=== PATIENT | female | born 1990 | race African-American/Black ===

== ENCOUNTER → 2017-11-03 | Outpatient (CLI) | payer OTHER ==
[~2017-11-03] MED LIST: AMOXICILLIN 50500 MG PO; ANTIVERT 25MG25 MG PO; DOXYCYCLINE 10100 MG PO; FLAGYL500 MG PO; FLONASE NASAL S16 GM NS; HYDROCHLOROTH12.5 M1 PO; HYDROCORT CREAM1% TP; IMPLANON68 MG ID; MOTRIN 800800 MG/TAB PO; NORCO 325 MG-51 TAB PO; PEN-VEE K500 MG PO; PHENERGAN 25 TA25 MG PO; PRENATAL1 TA7 PO; SUDAFED30 MG PO; TRIAMTERENE/HCT1 CAP PO
== END ==
LOC: COL.RAD 10-31 09:45
DX: M79.671 Pain in right foot (principal)

== ENCOUNTER → 2020-06-03 | Outpatient (CLI) | payer SELFPAY | LOC: ZLAB.KSTAT 15:46 | DX: Z20.828 Contact with and (suspected) exposure to other viral communicable diseases (principal) ==

== ENCOUNTER 2022-11-15 21:03 | Emergency (ER) | payer BC ==
[~2022-11-15] VITALS: Ht 172.7 cm; Wt 140.9 kg
[2022-11-15 21:35] LABS: BASO % 0.3 % (0.0-2.0); EOS # 0.2 K/mm3 (0.0-0.7); EOS % 1.6 % (0.0-4.0); GRAN # 5.2 K/mm3 (1.4-6.5); GRAN % 55.6 % (42.2-75.2); HEMATOCRIT 38.5 % (37.0-47.0); HEMOGLOBIN 12.5 g/dl (12.5-16.0); LYMPH # 3.5 K/mm3 (1.2-3.4); LYMPH % 37.2 % (20.0-51.0); MEAN CELL VOLUME 87 fl (80.0-100.0); MEAN CORPUSCULAR HEMOGLOBIN 28 pg (27-31); MEAN CORPUSCULAR HGB CONC 33 g/dl (33.0-37.0); MEAN PLATELET VOLUME 9.5 fl (7.4-10.4); MONO # 0.5 K/mm3 (0.1-0.6); PLATELET COUNT 345 K/mm3 (130-400); RED BLOOD COUNT 4.44 M/mm3 (4.10-5.30); REDCELL DISTRIBUTION WIDTH-CV 13.6 % (11.5-14.5)
[2022-11-15 22:24] LABS: COLLECTION METHOD CLEAN CATCH
[2022-11-15 22:33] LABS: MUCOUS Present (NOT PRESENT); URINE BACTERIA None Seen /hpf (NONE SEEN)
[2022-11-15 22:36] LABS: PH 5.5 (5.0-8.5); URINE APPEARANCE Clear (CLEAR/HAZY); URINE BLOOD 2+ (NEGATIVE); URINE COLOR Yellow (YELLOW); URINE GLUCOSE Negative (NEGATIVE); URINE KETONE TRACE (NEGATIVE); URINE NITRATE Negative (NEGATIVE); URINE PROTEIN(semi-quant) Negative (NEGATIVE); URINE UROBILINOGEN 0.2 E.U/dL (0.2-1.0)
[2022-11-15] MEDS ORDERED: SPRINTEC 35 MCG1 TAB PO (22:41)
[2022-11-15 23:02] VITALS: BP 137/78; PULSE 78; TEMP 98
== END 2022-11-15 23:02 | disposition home or self-care (01) ==
LOC: COL.ER 21:03
PROVIDERS: Emergency Medicine
DX: N92.0 Excessive and frequent menstruation with regular cycle (principal)
CPT/HCPCS: J7030

== ENCOUNTER 2023-10-16 11:09 | Emergency (ER) | payer BC ==
[~2023-10-16] VITALS: Ht 170.2 cm; Wt 136.4 kg
[~2023-10-16 11:09] MED LIST changes: +SPRINTEC 35 MCG1 TAB PO
[2023-10-16 11:17] VITALS: TEMP 98.8
[2023-10-16] MEDS ORDERED: NS 1,000 ML IV ONE (12:00)
[2023-10-16 12:26] LABS: COLLECTION METHOD CLEAN CATCH
[2023-10-16 12:30] LABS: BASO # 0.1 K/mm3 (0.0-0.2); BASO % 0.4 % (0.0-2.0); EOS # 0.2 K/mm3 (0.0-0.7); EOS % 1.8 % (0.0-4.0); GRAN # 9.4 K/mm3 (1.4-6.5); GRAN % 75.7 % (42.2-75.2); HEMATOCRIT 39.3 % (37.0-47.0); HEMOGLOBIN 12.6 g/dl (12.5-16.0); LYMPH # 1.7 K/mm3 (1.2-3.4); LYMPH % 13.9 % (20.0-51.0); MEAN CELL VOLUME 87 fl (80.0-100.0); MEAN CORPUSCULAR HEMOGLOBIN 28 pg (27-31); MEAN CORPUSCULAR HGB CONC 32 g/dl (33.0-37.0); MEAN PLATELET VOLUME 9.4 fl (7.4-10.4); MONO % 7.8 % (1.7-9.3); PLATELET COUNT 322 K/mm3 (130-400); RED BLOOD COUNT 4.51 M/mm3 (4.10-5.30); REDCELL DISTRIBUTION WIDTH-CV 12.8 % (11.5-14.5)
[2023-10-16 12:37] LABS: URINE APPEARANCE CLEAR (CLEAR/HAZY); URINE BLOOD NEGATIVE (NEGATIVE); URINE COLOR YELLOW (YELLOW); URINE GLUCOSE NEGATIVE (NEGATIVE); URINE KETONE NEGATIVE (NEGATIVE); URINE NITRATE NEGATIVE (NEGATIVE); URINE PROTEIN(semi-quant) NEGATIVE (NEGATIVE)
[2023-10-16 12:48] LABS: ALBUMIN 3.3 gm/dL (3.5-5.0); BILIRUBIN,TOTAL 0.5 mg/dL (0.2-1.2); C-REACTIVE PROTEIN 8.5 mg/dL (0.00-0.50); CALCIUM 9.3 mg/dL (8.4-10.2); CREATININE, serum 0.71 mg/dL (0.57-1.11); TOTAL PROTEIN 7.7 gm/dL (6.2-8.1)
[2023-10-16] MEDS ORDERED: Penicillin G Benz 1,200,000 UNITS/2 ML SYRINGE IM ONE (13:15)
[2023-10-16] MEDS ORDERED: dexAMETHasone 10 MG/ML VIAL IV ONE (13:15)
[2023-10-16 13:53] VITALS: BP 127/76; PULSE 98
== END 2023-10-16 13:39 | disposition home or self-care (01) ==
LOC: COL.ER 11:09
PROVIDERS: Nurse Practitioner
DX: J02.0 Streptococcal pharyngitis (principal)
CPT/HCPCS: J0561; J1100; J7030